=== PATIENT | male | born 1975 | race Caucasian/White ===

== ENCOUNTER 2019-04-30 16:42 | Emergency (ER) | payer SELFPAY ==
[~2019-04-30] VITALS: Ht 180.3 cm; Wt 95.3 kg
--- NOTE | 2019-04-30 16:58 | PHYS DOC ---
Past Medical History Past Medical History: Depression, Other Past Surgical History: No Surgical History, Other Alcohol Use: None Drug Use: None Adult General Chief Complaint Chief Complaint: SYNCOPE HPI HPI Patient is a 44 year old male who presents with syncopal episode that happened approximately one hour ago. The patient states that he was on the toilet and passed out and hit his chin on the floor. Has a chin laceration. Patient has been sitting on his deck all day states he has not been drinking much water. De nies any pain at this time. Denies any interventions prior to arrival. Review of Systems Review of Systems Constitutional: Denies fever or chills [] Eyes: Denies change in visual acuity, redness, or eye pain [] HENT: Denies nasal congestion or sore throat but reports chin laceration. Respiratory: Denies cough or shortness of breath [] Cardiovascular: Denies Chest pain but reports syncopal episode. GI: Denies abdominal pain, nausea, vomiting, bloody stools or diarrhea [] : Denies dysuria or hematuria [] Musculoskeletal: Denies back pain or joint pain [] Integument: Denies rash or skin lesions [] Neurologic: Denies headache, focal weakness or sensory changes [] Endocrine: Denies polyuria or polydipsia [] Complete systems were reviewed and found to be within normal limits, except as documented in this note. Current Medications Current Medications Current Medications Medications (Trade) Dose Ordered Sig/Umberto Start Time Stop Time Status Last Admin Dose Admin Diphtheria/ Tetanus/Acell Pertussis (Boostrix) 0.5 ml ONCE ONCE 04/30/19 18:00 04/30/19 18:02 DC 04/30/19 18:08 0.5 ML Lidocaine/ Epinephrine (LIDOCAINE 1%-EPI 1:100,000 Multi-Dose) 20 ml 1X ONCE 04/30/19 17:00 04/30/19 17:05 DC 04/30/19 16:00 20 ML Neomycin/ Polymyxin/ Bacitracin (Triple Antibiotic Ointment) 1 pkt 1X ONCE 04/30/19 18:00 04/30/19 18:02 DC 04/30/19 18:06 1 PKT Sodium Chloride 1,000 ml @ 1,000 mls/hr 1X ONCE 04/30/19 17:00 04/30/19 17:59 DC 04/30/19 17:09 1,000 MLS/HR Allergies Allergies Allergies Coded Allergies Type Severity Reaction Last Updated Verified No Known Drug Allergies 04/28/15 No Physical Exam Physical Exam Constitutional: Well developed, well nourished, no acute distress, non-toxic appearance. [] HENT: Normocephalic, atraumatic, bilateral external ears normal, oropharynx moist, no oral exudates, nose normal. Chin has 2 cm laceration. Eyes: PERRLA, EOMI, conjunctiva normal, no discharge. [] Neck: Normal range of motion, no tenderness, supple, no stridor. [] Cardiovascular:Heart rate regular rhythm, no murmur [] Lungs & Thorax: Bilateral breath sounds clear to auscultation [] Abdomen: Bowel sounds normal, soft, no tenderness, no masses, no pulsatile masses. [] Skin: Warm, dry, no erythema, no rash. [] Back: No tenderness, no CVA tenderness. [] Extremities: No tenderness, no cyanosis, no clubbing, ROM intact, no edema. [] Neurologic: Alert and oriented X 3, normal motor function, normal sensory function, no focal deficits noted. [] Psychologic: Affect normal, judgement normal, mood normal. [] Current Patient Data Vital Signs Vital Signs Date Time Temp Pulse Resp B/P (MAP) Pulse Ox O2 Delivery O2 Flow Rate FiO2 04/30/19 19:00 70 16 133/68 (89) 97 Room Air 04/30/19 16:50 97.6 97.6 Lab Values Laboratory Tests Test 04/30/19 17:02 04/30/19 18:20 White Blood Count 9.3 x10^3/uL (4.0-11.0) Red Blood Count 5.41 x10^6/uL (4.30-5.70) Hemoglobin 16.3 g/dL (13.0-17.5) Hematocrit 48.9 % (39.0-53.0) Mean Corpuscular Volume 90 fL (79-100) Mean Corpuscular Hemoglobin 30 pg (25-35) Mean Corpuscular Hemoglobin Concent 33 g/dL (31-37) Red Cell Distribution Width 13.4 % (11.5-14.5) Platelet Count 339 x10^3/uL (140-400) Neutrophils (%) (Auto) 74 % (31-73) H Lymphocytes (%) (Auto) 18 % (24-48) L Monocytes (%) (Auto) 7 % (0-9) Eosinophils (%) (Auto) 0 % (0-3) Basophils (%) (Auto) 1 % (0-3) Neutrophils # (Auto) 6.9 x10^3uL (1.8-7.7) Lymphocytes # (Auto) 1.7 x10^3/uL (1.0-4.8) Monocytes # (Auto) 0.7 x10^3/uL (0.0-1.1) Eosinophils # (Auto) 0.0 x10^3/uL (0.0-0.7) Basophils # (Auto) 0.0 x10^3/uL (0.0-0.2) Sodium Level 141 mmol/L (136-145) Potassium Level 3.9 mmol/L (3.5-5.1) Chloride Level 101 mmol/L (98-107) Carbon Dioxide Level 27 mmol/L (21-32) Anion Gap 13 (6-14) Blood Urea Nitrogen 15 mg/dL (8-26) Creatinine 1.6 mg/dL (0.7-1.3) H Estimated GFR (Cockcroft-Gault) 47.2 BUN/Creatinine Ratio 9 (6-20) Glucose Level 142 mg/dL (70-99) H Calcium Level 9.6 mg/dL (8.5-10.1) Total Bilirubin 1.2 mg/dL (0.2-1.0) H Aspartate Amino Transferase (AST) 15 U/L (15-37) Alanine Aminotransferase (ALT) 25 U/L (16-63) Alkaline Phosphatase 72 U/L (46-116) Troponin I Quantitative < 0.017 ng/mL (0.000-0.055) Total Protein 8.0 g/dL (6.4-8.2) Albumin 4.0 g/dL (3.4-5.0) Albumin/Globulin Ratio 1.0 (1.0-1.7) Urine Collection Type Unknown Urine Color Yellow Urine Clarity Clear Urine pH 5.5 Urine Specific Partridge 1.020 Urine Protein Negative mg/dL (NEG-TRACE) Urine Glucose (UA) Negative mg/dL (NEG) Urine Ketones (Stick) Negative mg/dL (NEG) Urine Blood Negative (NEG) Urine Nitrite Negative (NEG) Urine Bilirubin Negative (NEG) Urine Urobilinogen Dipstick 0.2 mg/dL (0.2 mg/dL) Urine Leukocyte Esterase Negative (NEG) Urine RBC 0 /HPF (0-2) Urine WBC 0 /HPF (0-4) Urine Squamous Epithelial Cells Occ /LPF Urine Bacteria 0 /HPF (0-FEW) Urine Hyaline Casts Occasional /HPF Urine Mucus Mod /LPF Laboratory Tests 04/30/19 17:02 Laboratory Tests 04/30/19 17:02 EKG EKG Interpreted by Dr. Rubalcava, []No STEMI, Sinus Tachycardia with rate of 105. Radiology/Procedures Radiology/Procedures Indication: Laceration Procedure: The patient was placed in the appropriate position and anesthesia around the wound was 5 mL of 1% lidocaine with epi was used. The area was then cleansed with copious normal saline of 120 mL. The laceration was closed with 6 5-0 Ethilon sutures. The wound area was then dressed with dressing and Neosporin. Total repaired wound length: 2 cm The patient tolerated the procedure. Complications:None Course & Med Decision Making Course & Med Decision Making Pertinent Labs and Imaging studies reviewed. (See chart for details) Will order labs, chest x-ray, urine, ekg, and suture his chin. Patient refused chest x-ray. labs appeared to show patient is dry with creatinine of 1.6. Sutured chin. Will put on antibiotic at home. UA is negative. Dragon Disclaimer Dragon Disclaimer This electronic medical record was generated, in whole or in part, using a voice recognition dictation system. Departure Departure Impression: Primary Impression: Syncope Additional Impression: Laceration Disposition: 01 HOME, SELF-CARE Condition: STABLE Referrals: BERNICE LEE MD (PCP) Additional Instructions: Please drink plenty of fluids. Come back to ED as needed. Follow up with Primary care doctor as needed. Get sutures taken out in 5-7 days by your doctor. Put neosporin on wound and keep clean. Take antibiotics and watch for signs of infection. Scripts Cephalexin (KEFLEX) 500 Mg Capsule 1 CAP PO BID for 7 Days, #14 CAP Prov: IMANI HERNANDEZ APRN 04/30/19 Problem Qualifiers Primary Impression: Syncope Syncope type: unspecified Qualified Codes: R55 - Syncope and collapse IMANI HERNANDEZ APRN Apr 30, 2019 16:58
[2019-04-30] MEDS ORDERED: LIDOCAINE 1%/EPI 1:100,000 20 ML VIAL. INJ ONE (17:00)
[2019-04-30] MEDS ORDERED: IV NORMAL SALINE 1000ML BAG 1,000 ML IV ONE (17:00)
[2019-04-30 17:19] LABS: BASO % 1 % (0-3); EOS % 0 % (0-3); HEMATOCRIT 48.9 % (39.0-53.0); HEMOGLOBIN 16.3 g/dL (13.0-17.5); LYMPH # 1.7 x10^3/uL (1.0-4.8); LYMPH % 18 % (24-48); MEAN CORPUSCULAR HEMOGLOBIN 30 pg (25-35); MEAN CORPUSCULAR HGB CONC 33 g/dL (31-37); MEAN CORPUSCULAR VOLUME 90 fL (79-100); MONO # 0.7 x10^3/uL (0.0-1.1); MONO % 7 % (0-9); NEUT # 6.9 x10^3uL (1.8-7.7); NEUT % 74 % (31-73); PLATELET COUNT 339 x10^3/uL (140-400); RED BLOOD COUNT 5.41 x10^6/uL (4.30-5.70); RED CELL DISTRIBUTION WIDTH 13.4 % (11.5-14.5); WHITE BLOOD COUNT 9.3 x10^3/uL (4.0-11.0)
[2019-04-30 17:30] LABS: CALCIUM 9.6 mg/dL (8.5-10.1); CREATININE 1.6 mg/dL (0.7-1.3); GFR 47.2; POTASSIUM 3.9 mmol/L (3.5-5.1)
[2019-04-30 17:36] LABS: TOTAL BILIRUBIN 1.2 mg/dL (0.2-1.0)
[2019-04-30] MEDS ORDERED: NEOMY/BACITR/POLYMYXIN OINT PACKET. TP ONE (18:00)
[2019-04-30] MEDS ORDERED: DIPHTH,PERTUSS(ACELL),TET TOX 0.5 ML DISP.SYRIN. VAX IM ONE (18:00)
[2019-04-30] MEDS ORDERED: CEPH-264 PO (18:08)
[2019-04-30 18:26] LABS: BILIRUBIN,URINE NEGATIVE (NEG); CLARITY,URINE CLEAR; COLOR,URINE YELLOW; NITRITE,URINE NEGATIVE (NEG); PH,URINE 5.5; PROTEIN,URINE NEGATIVE (NEG-TRACE); UROBILINOGEN,URINE 0.2 mg/dL (0.2 mg/dL)
[2019-04-30 18:43] LABS: BACTERIA,URINE 0 /HPF (0-FEW); HYALINE CASTS, URINE OCCASIONAL /HPF; RBC,URINE 0 /HPF (0-2); SQUAMOUS EPITHELIAL CELL,UR OCC /LPF; WBC,URINE 0 /HPF (0-4)
[2019-04-30 19:00] VITALS: BP 133/68
--- NOTE | 2019-05-01 06:39 | EKG ---
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
== END 2019-04-30 19:13 | disposition home or self-care (01) ==
LOC: ER 16:42
DX: S01.81XA Laceration without foreign body of other part of head, initial encounter (principal); R55 Syncope and collapse; F32.9 Major depressive disorder, single episode, unspecified; W22.09XA Striking against other stationary object, initial encounter; Y93.89 Activity, other specified; Y92.89 Other specified places as the place of occurrence of the external cause; Y99.8 Other external cause status
CPT/HCPCS: 12011; 36415; 80053; 81001; 84484; 85025; 90471; 90715; 93005; 96360; 99285; J3490; J7030; 96361; 96374; 96375; 96376

== ENCOUNTER 2020-09-06 21:59 | Emergency (ER) | payer SELFPAY ==
[~2020-09-06] VITALS: Ht 177.8 cm; Wt 90.9 kg
[~2020-09-06 21:59] MED LIST: CEPH-264 PO
[2020-09-06 22:14] VITALS: BP 143/72
[2020-09-06] MEDS ORDERED: MUPI22OI2 TP (22:40)
[2020-09-06] MEDS ORDERED: CLIN300C8 PO (22:40)
--- NOTE | 2020-09-06 22:40 | PHYS DOC ---
Past Medical History Past Medical History: No Pertinent History, Depression Past Surgical History: Other Additional Past Surgical Histo: HERNIA Smoking Status: Never Smoker Alcohol Use: Occasionally Drug Use: Marijuana General Adult EDM: Chief Complaint: INSECT BITE HPI: HPI: Patient is a 45 year old M who presents with complaint of 2 spider bites, one to his left elbow and another the left lateral forearm. He noticed them about 3-4 days ago, but states that he did not see a spider. He complains of achy pain that is not relieved by tylenol or ice. He reports greenish to clear drainage from both sites. He denies fever or chills. He denies any muscle weakness or sen avelina changes. He states he has had a few episodes of diarrhea that began 2-3 days ago. He reports cleaning them with hydrogen peroxide and putting neosporin on them. Review of Systems: Review of Systems: Constitutional: Denies fever or chills Eyes: Denies redness or eye pain HENT: Denies nasal congestion or sore throat Respiratory: Denies cough or shortness of breath Cardiovascular: Denies chest pain or palpitations GI: Denies nausea or vomiting; reports diarrhea : Denies dysuria or hematuria Musculoskeletal: Denies back pain or joint pain Integument: Denies rash or skin lesions Neurologic: Denies headache or sensory changes Complete systems were reviewed and found to be within normal limits, except as documented in this note. Current Medications: Current Medications Medications (Trade) Dose Ordered Sig/Umberto Start Time Stop Time Status Last Admin Dose Admin Clindamycin HCl (Cleocin) 300 mg 1X ONCE 09/06/20 23:00 09/06/20 23:01 Diphtheria/ Tetanus/Acell Pertussis (ADACEL TDap SYRINGE) 0.5 ml ONCE ONCE 09/06/20 23:00 09/06/20 23:01 Neomycin/ Polymyxin/ Bacitracin (Triple Antibiotic Ointment) 1 pkt 1X ONCE 09/06/20 23:00 09/06/20 23:01 Allergies: Allergies: Allergies Coded Allergies Type Severity Reaction Last Updated Verified No Known Drug Allergies 04/28/15 No Physical Exam: PE: Constitutional: Well developed, well nourished, non-toxic appearance HENT: Normocephalic, atraumatic Eyes: Conjunctiva normal, no discharge Neck: Normal range of motion, supple Lungs & Thorax: No respiratory distress, equal chest rise and fall Abdomen: Soft, no tenderness Skin: Warm, dry. 2 small areas of purulent fluctuance with surrounding cellulitis. One to the left elbow and another to the left lateral forearm. Pain to palpation of these areas Back: No tenderness, no CVA tenderness Extremities: No tenderness, ROM intact Neurologic: Alert and oriented X 3, no focal deficits noted Psychologic: Affect normal, judgment normal Current Patient Data: Vital Signs: Vital Signs Date Time Temp Pulse Resp B/P (MAP) Pulse Ox O2 Delivery O2 Flow Rate FiO2 09/06/20 22:14 98.0 95 16 143/72 (95) 98 Room Air 98.0 EKG: EKG: [] Radiology/Procedures: Radiology/Procedures: [] Course & Med Decision Making: Course & Med Decision Making 45 yo M presented for "spider bites". Two small areas of purulent fluctuance with surrounding cellulitis, one to left elbow and another to left lateral forearm, were drained via 18g hypodermic needle. Small amount of purulent discharge expressed. Verbal consent obtained for procedure. Areas dressed with antibiotic ointment and sterile dressing. Pt stable upon discharge with prescription antibiotics. FookyZ Disclaimer: FookyZ Disclaimer: This electronic medical record was generated, in whole or in part, using a voice recognition dictation system. Incision and Drainage Incision and Drainage : Blade Size: 18g hypodermic needle Progress Verbal consent obtained. Time out performed. Hand hygiene utilized. Wound cleaned with ChloraPrep. Small area of purulent fluctuance x 2 to left elbow and proximal lateral forearm punctured with 18g hypodermic needle with small p urulent discharge expressed. Patient tolerated procedure well and without difficulty. Empiric antibiotic ointment applied prior to sterile dressing. Departure Departure Impression: Primary Impression: Cellulitis and abscess of upper arm and forearm Disposition: 01 DC HOME SELF CARE/HOMELESS Condition: STABLE Referrals: BERNICE LEE MD (PCP) Patient Instructions: Abscess, Care After, Cellulitis, [id number] Additional Instructions: Do not soak your wound. You may shower. Clean wound daily with soap and water. Change dressing 2 times daily. Use over the counter antibiotic ointment with each dressing change. Scripts Clindamycin Hcl (CLINDAMYCIN HCL) 300 Mg Capsule 1 CAP PO TID for Infection for 7 Days, #21 CAP Prov: IMANI PATEL DO 09/06/20 Mupirocin (MUPIROCIN OINTMENT) 22 Gm Oint...g. 1 MONTSE TP TID for WOUND CARE for 7 Days, #1 TUBE Prov: IMANI PATEL DO 09/06/20 IMANI PATEL DO Sep 06, 2020 22:40
[2020-09-06] MEDS ORDERED: CLINDAMYCIN HCL 150 MG CAPSULE. PO ONE (23:00)
[2020-09-06] MEDS ORDERED: NEOMY/BACITR/POLYMYXIN OINT PACKET. TP ONE (23:00)
[2020-09-06] MEDS ORDERED: DIPH,PERTUSS(ACELL),TET VAC/PF 0.5 ML SYRINGE. VAX IM ONE (23:00)
== END 2020-09-06 22:45 | disposition home or self-care (01) ==
LOC: ER 21:59
DX: L02.414 Cutaneous abscess of left upper limb (principal); R19.7 Diarrhea, unspecified; F32.9 Major depressive disorder, single episode, unspecified; F12.90 Cannabis use, unspecified, uncomplicated; Z98.890 Other specified postprocedural states
CPT/HCPCS: 10060; 90471; 90715; 99283